=== PATIENT | female | born 1985 | race Caucasian/White ===

== ENCOUNTER 2024-08-20 22:38 | Emergency (ER) | payer SELFPAY ==
[~2024-08-20] VITALS: Ht 160 cm; Wt 74.6 kg
[2024-08-20 22:41] VITALS: BP 134/81; TEMP 98.2; O2SAT 97
[2024-08-20] MEDS ORDERED: ADDE20CA3 PO (22:53)
[2024-08-20] MEDS ORDERED: VALT500T PO (22:53)
[2024-08-20] MEDS ORDERED: ADDE1TAB14 PO (22:53)
== END 2024-08-21 00:10 | disposition home or self-care (01) ==
LOC: M ED 22:38
DX: S01.111A Laceration without foreign body of right eyelid and periocular area, initial encounter (principal); W54.1XXA Struck by dog, initial encounter; M54.50 Low back pain, unspecified; Z88.6 Allergy status to analgesic agent; Y92.9 Unspecified place or not applicable; Y93.K9 Activity, other involving animal care; Y99.9 Unspecified external cause status; Z79.899 Other long term (current) drug therapy

== ENCOUNTER → 2025-03-23 | Outpatient (CLI) | payer OTHER ==
[~2025-03-23] MED LIST: ADDE1TAB14 PO; ADDE20CA3 PO; VALT500T PO
== END ==
LOC: M WHC 14:45
PROVIDERS: ATTEND Student in an Organized Health Care Education/Training Program
DX: Z12.31 Encounter for screening mammogram for malignant neoplasm of breast (principal); R92.333 Mammographic heterogeneous density, bilateral breasts

== ENCOUNTER → 2025-04-27 | Outpatient (REF) | payer OTHER ==
[2025-04-27 17:25] LABS: APPEARANCE, URINE HAZY (CLEAR); BACTERIA, URINE AUTO NEGATIVE (NEGATIVE); BILIRUBIN, URINE AUTO NEGATIVE (NEGATIVE); BLOOD, URINE BLOOD NEGATIVE (NEGATIVE); GLUCOSE, URINE (UA) AUTO NEGATIVE (NEGATIVE); KETONE, URINE AUTO NEGATIVE (NEGATIVE); LEUKOCYTE ESTERASE, URINE AUTO NEGATIVE (NEGATIVE); MUCUS, URINE SMALL (NEGATIVE); NITRITE, URINE AUTO NEGATIVE (NEGATIVE); PROTEIN, URINE AUTO NEGATIVE (NEGATIVE); RBC, URINE AUTO 0 /HPF (0-3); SPECIFIC GRAVITY URINE AUTO 1.016 (1.002-1.035); SQUAMOUS EPITHELIAL CELL UR AU 6 /HPF (0-6); UROBILINOGEN, URINE AUTO 0.2 mg/dL (0.0-2.0); WBC, URINE AUTO 0 /HPF (0-3)
== END ==
LOC: M SMT 16:49
PROVIDERS: ATTEND Nurse Practitioner Family
DX: N39.46 Mixed incontinence (principal)

== ENCOUNTER → 2025-07-26 | Outpatient (CLI) | payer OTHER | LOC: M WHC 07:37 | PROVIDERS: ATTEND Student in an Organized Health Care Education/Training Program | DX: S22.39XA Fracture of one rib, unspecified side, initial encounter for closed fracture (principal); M85.80 Other specified disorders of bone density and structure, unspecified site; X58.XXXA Exposure to other specified factors, initial encounter; Y92.9 Unspecified place or not applicable; Y93.9 Activity, unspecified; Y99.9 Unspecified external cause status ==